=== PATIENT | male | born 1955 | race African-American/Black ===

== ENCOUNTER 2018-05-08 12:34 | Outpatient (CLI) | payer OTHER, MEDICAID, SELFPAY ==
--- NOTE | 2018-05-08 06:00 | DI.RAD_ITS ---
SYMPTOM/DIAGNOSIS: LUMBAR RADICULOPATHY C-ARM: Fluoroscopy Time: 57.9 seconds Images submitted from the pain clinic demonstrate needles positioned over the right and left lateral portions of L 5 in conjunction with a steroid injection carried out by Dr. Menendez. Please see the procedure report for further information.
[2018-05-08 12:38] VITALS: BP 119/84; PULSE 100; RESP 18; TEMP 37; O2SAT 99
[2018-05-08 13:19] VITALS: BP 149/77; PULSE 88; RESP 17; O2SAT 100
--- NOTE | 2018-05-08 13:19 | PDOC.PAIN ---
Pain Clinic Procedure Note Current Active Problems Problem Status Onset Lumbar radicular pain Chronic LUMBAR / SACRAL TRANSFORAMINAL INJECTION MARGARITO HESTER has been referred [facility] the [facility] for a transforaminal nerve root block and steroid injection. COMMENTS: Patient running at L5-S1 bilaterally and has had multiple bilateral transforaminal injection with good relief. Patient was interviewed and the medical record reviewed. There were no medical, pharmacologic, radiographic or other structural contraindications to attempting fluoroscopically guided transforaminal nerve root block and epidural steroid injection. Risks and expected side effects as well as potential benefit of the procedure were reviewed and voiced concerns addressed. The printed consent form was signed and witnessed. Standard time-out procedure was performed. Patient was placed in the prone position on the fluoroscopy table and automated blood pressure cuff and pulse oximeter applied. Fluoroscopy was utilized to identify the { bilateral} neural foramen between L5 and S1 . A skin tonya was made for the needle insertion site. A Chlorhexadine prep was carried out, and sterile drapes were applied. Local anesthesia was achieved in the skin and subcutaneous tissues. A 22 gauge curved tip spinal needle was then inserted, advanced with fluoroscopic guidance into the neural foramen, confirmed on the lateral view. After negative aspiration, 2 ml of Omnipaque 240 was injected confirming position in A/P and lateral views. This showed a good spread of dye transforaminally into the epidural space. There was no vascular update with contrast injection under continuous fluoroscopy and digital substraction. 60 mg of Depo-Medrol was injected, followed by 0.5 ml of 1% Xylocaine flush for the nerve root block, as well. There was no unusual discomfort expressed.The needle was withdrawn. The patient tolerated the procedure well. A Band-Aid was applied. Vital signs were stable throughout the procedure and were as recorded in nursing records. If given, dosages of intravenous drugs for anxiolysis and analgesia were documented in nursing records. Follow up plans and appointments were discussed. Post procedure instruction was given as documented in nursing records and patient was discharged in the care of an identified otr flatbed driver. COMMENTS: pain went from 8 to 09/15. f/u prn CC: [facility]
--- NOTE | 2018-05-08 13:22 | PDOC.PAIN_ITS ---
Pain Clinic Procedure Note Current Active Problems Problem Status Onset Lumbar radicular pain Chronic LUMBAR / SACRAL TRANSFORAMINAL INJECTION MARGARITO HESTER has been referred to the [facility] for a transforaminal nerve root block and steroid injection. COMMENTS: Patient running at L5-S1 bilaterally and has had multiple bilateral transforaminal injection with good relief. Patient was interviewed and the medical record reviewed. There were no medical , pharmacologic, radiographic or other structural contraindications to attempting fluoroscopically guided transforaminal nerve root block and epidural steroid injection. Risks and expected side effects as well as potential benefit of the procedure were reviewed and voiced concerns addressed. The printed consent form was signed and witnessed. Standard time-out procedure was performed. Patient was placed in the prone position on the fluoroscopy table and automated blood pressure cuff and pulse oximeter applied. Fluoroscopy was utilized to identify the { bilateral} neural foramen between L5 and S1 . A skin tonya was made for the needle insertion site. A Chlorhexadine prep was carried out, and sterile drapes were applied. Local anesthesia was achieved in the skin and subcutaneous tissues. A 22 gauge curved tip spinal needle was then inserted, advanced with fluoroscopic guidance into the neural foramen, confirmed on the lateral view. After negative aspiration, 2 ml of Omnipaque 240 was injected confirming position in A/P and lateral views. This showed a good spread of dye transforaminally into the epidural space. There was no vascular update with contrast injection under continuous fluoroscopy and digital substraction. 60 mg of Depo-Medrol was injected, followed by 0.5 ml of 1% Xylocaine flush for the nerve root block, as well. There was no unusual discomfort expressed.The needle was withdrawn. The patient tolerated the procedure well. A Band-Aid was applied. Vital signs were stable throughout the procedure and were as recorded in nursing records. If given, dosages of intravenous drugs for anxiolysis and analgesia were documented in nursing records. Follow up plans and appointments were discussed. Post procedure instruction was given as documented in nursing records and patient was discharged in the care of an identified bookmobile driver. COMMENTS: pain went from 8 to 09/15. f/u prn CC: [facility]
[2018-05-08] MEDS: Omnipaque 240 MG/ML 50 ML BTL IJ (13:28)
[2018-05-08] MEDS: Bupivacaine 0.5% Pres-Free 30 ML VIAL IJ (13:28)
[2018-05-08] MEDS: methylPREDNISolone ACETATE 40 MG/ML VIAL IJ (13:29)
== END 2018-05-08 12:54 ==
PROVIDERS: Visit Provider Anesthesiology Pain Medicine
DX: M54.16 Radiculopathy, lumbar region (principal); G89.29 Other chronic pain
CPT/HCPCS: 64483; 72100; J1030; Q9967

== ENCOUNTER 2018-06-12 14:49 | Emergency (ER) | payer OTHER, MEDICAID, SELFPAY ==
[2018-06-12 15:07] VITALS: BP 126/92; PULSE 78; RESP 14; TEMP 36.6; O2SAT 99
--- NOTE | 2018-06-12 15:54 | W.ED.GENAD ---
Discharge Plan Disposition Patient Disposition: HOME Condition: Stable Discharge Details Chief Complaint: Orthopedic Clinical Impression: Cervical pain (neck) Primary Care Provider: Tiana,Local ED Provider: Baldemar Ricketts Home Meds and New Rx's Prescriptions: New cyclobenzaprine 10 mg tablet 10 mg PO TID PRN (Reason: muscle spasm) Qty: 14 RF: 0 prednisone 50 mg tablet 50 mg PO DAILY Qty: 4 RF: 0 Continue aspirin [Adult Aspirin Regimen] 81 mg tablet,delayed release (DR/EC) 81 mg PO DAILY RF: 0 brimonidine 0.2 % drops 1 drp OP BID RF: 0 capsacin cream See Patient Comments Topical .COMPLEX PRNRF: 0 chlorthalidone 25 mg tablet 25 mg PO DAILY RF: 0 cholecalciferol (vitamin D3) 1,000 unit capsule 1,000 unit PO DAILY RF: 0 guaifenesin 100 mg/5 mL liquid 200 mg PO Q4H PRNRF: 0 Lactobacillus acidophilus 1 billion cell capsule 20 mg PO BID RF: 0 latanoprost (PF) 0.005 % drops 1 drp OP QPM PRNRF: 0 meloxicam 15 mg tablet 15 mg PO DAILY RF: 0 sildenafil 100 mg tablet 100 mg PO ONCE RF: 0 hydrocodone-acetaminophen 1 EACH tablet 1 tab PO QID PRN PRNRF: 0 atorvastatin [Lipitor] 20 MG tablet 20 mg PO DAILY RF: 0 quetiapine [Seroquel] 200 MG tablet 400 mg PO HS RF: 0 Ibuprofen [Motrin Ib] 200 MG tablet 600 mg PO Q6H 5 Days Qty: 60 RF: 0 gabapentin 600 MG tablet 900 mg PO TID Qty: 0 RF: 0 Discharge Instructions Instructions: Neck Pain (ED) Additional Instructions: Return immediately to the emergency department for any new or worsening symptoms such as upper extremity weakness, numbness or tingling that is persistent, any new or worrisome concerns. Due to the injection he received in the emergency department do not take any ibuprofen or meloxicam this evening. You may continue to take acetaminophen for your prescribe narcotic pain medication as needed for any further discomfort. You should follow-up with your primary care provider for reassessment if not improving over the next week. Referrals: [facility] [Outside] - 1 week (Follow-up with [place] [facility] for reassessment and further referral to neurology/neurosurgery for reevaluation of your neck pain. ) Discharge Data Discharge Date/Time-TO BE ENTERED AT DEPARTURE: 06/12/18 16:07 Medical Decision Making Patient presenting the emergency department for chief complaint of cervical neck pain. Patient states some radiation of discomfort down his left arm. Patient states chronic neck pain that is been going on for a year with MRI imaging showing some cervical bulging disc. Patient has appropriate upper extremity strength, no weakness, no muscle wasting, neurologically intact with no focal deficit, tenderness to palpation of soft tissue surrounding lower cervical spine and upper thoracic spine with some muscular tension felt around the medial aspect of the scapula. Spurling test is negative. patient has no fever or chills and denies any injury or trauma. I do not feel that patient needs any radiological imaging at this time and this appears to be chronic neck pain with acute flareup due to his reported bulging disc. Review of records shows similar presentation in the emergency department in January and patient being placed on prednisone and Flexeril which he states significantly helped in the past. [facility] and patient states he was never contacted by them. Patient placed upon care management follow-up list for facilitating [facility]. Patient states understanding to return for any new or worsening symptoms. Acutely in the emergency department patient received lidocaine patch, Flexeril, 15 mg IM ketorolac. After discussion of diagnosis and plan of care patient is no further needs, questions, or concerns and states clear understanding to return to the emergency department for any worsening symptoms. HPI General Mode of arrival: ambulatory. Date/Time Provider Initiated Documentation: 06/12/18 15:22. Limitations to Documentation: no limitations. Information obtained by: patient. History of Present Illness 62 year old M presents to the emergency department with the chief complaint of neck pain, described as severe, with intensity rated at 9. Quality is described as sharp, and is localized to the neck. Patient reports no radiation. Patient started experiencing this day(s) (1) and it has been constant. No relieving factors improve symptom(s), Movement worsens symptoms . Patient notes no other symptoms.. Related Data Home Medications Medication Instructions Recorded Confirmed Ibuprofen [Motrin Ib] 600 mg PO Q6H 5 Days #60 tab 01/13/18 05/08/18 atorvastatin [Lipitor] 20 mg PO DAILY 01/13/18 05/08/18 gabapentin 900 mg PO TID #0 01/13/18 05/08/18 hydrocodone-acetaminophen 1 tab PO QID PRN PRN 01/13/18 05/08/18 quetiapine [Seroquel] 400 mg PO HS 01/13/18 05/08/18 Lactobacillus acidophilus 1 20 mg PO BID cap 04/12/18 05/08/18 billion cell capsule aspirin 81 mg tablet,delayed 81 mg PO DAILY 04/12/18 05/08/18 release brimonidine 0.2 % eye drops 1 drp OP BID ml 04/12/18 05/08/18 capsacin See Label Instructions TOPICAL 04/12/18 05/08/18 .COMPLEX PRN chlorthalidone 25 mg tablet 25 mg PO DAILY 04/12/18 05/08/18 cholecalciferol (vitamin D3) 1,000 1,000 unit PO DAILY 04/12/18 05/08/18 unit capsule guaifenesin 100 mg/5 mL oral liquid 200 mg PO Q4H PRN 04/12/18 05/08/18 latanoprost (PF) 0.005 % eye drops 1 drp OP QPM PRN 04/12/18 05/08/18 meloxicam 15 mg tablet 15 mg PO DAILY 04/12/18 05/08/18 sildenafil 100 mg tablet 100 mg PO ONCE 04/12/18 05/08/18 cyclobenzaprine 10 mg PO TID PRN #14 tab 06/12/18 prednisone 50 mg PO DAILY #4 tab 06/12/18 Previous Rx's Medication Instructions Recorded Ibuprofen [Motrin Ib] 600 mg PO Q6H 5 Days #60 tab 01/13/18 gabapentin 900 mg PO TID #0 01/13/18 cyclobenzaprine 10 mg PO TID PRN #14 tab 06/12/18 prednisone 50 mg PO DAILY #4 tab 06/12/18 Allergies Allergy/AdvReac Type Severity Reaction Status Date / Time No Known Allergies Allergy Unverified 06/12/18 16:26 General Stated Complaint: Orthopedic JAMES: 4 Review of Systems Constitutional Denies chills, Denies fever(s) and Denies frequent falls ENT Reports neck pain Cardiovascular Denies syncope Musculoskeletal Reports as per HPI, Reports arthralgias, Denies limited range of motion, Reports neck pain, Denies numbness and Denies tingling Neurologic Denies syncope, Denies frequent falls, Denies numbness and Denies tingling PFSH Lumbar radicular pain (Chronic) Atherosclerosis of arteries (Acute) Chronic post-traumatic stress disorder (PTSD) (Acute) Hyperlipidemia (Acute) Intervertebral disc disorder with radiculopathy of lumbar region (Acute) Other problems related to housing and economic circumstances (Acute) Primary erectile dysfunction (Acute) GERD (gastroesophageal reflux disease) (Chronic) HTN (hypertension) (Chronic) H/O eye surgery (Acute) History of facial surgery (Acute) History of surgical removal of ganglion cyst (Acute) S/P tendon repair (Acute) Medical History Lumbar radicular pain (Chronic) Atherosclerosis of arteries (Acute) Chronic post-traumatic stress disorder (PTSD) (Acute) Hyperlipidemia (Acute) Intervertebral disc disorder with radiculopathy of lumbar region (Acute) Other problems related to housing and economic circumstances (Acute) Primary erectile dysfunction (Acute) GERD (gastroesophageal reflux disease) (Chronic) HTN (hypertension) (Chronic) Social History lives independently: Yes number of children: 2 current occupational status: employed current occupation: [employer] Smoking/Tobacco Use Status: Current every day alcohol intake: current alcohol intake frequency: a few times a week substance use type: marijuana Surgical History H/O eye surgery (Acute) History of facial surgery (Acute) History of surgical removal of ganglion cyst (Acute) S/P tendon repair (Acute) Social History lives independently: Yes number of children: 2 current occupational status: employed current occupation: [employer] Smoking/Tobacco Use Status: Current every day alcohol intake: current alcohol intake frequency: a few times a week substance use type: marijuana Exam Const General: cooperative, healthy appearing and no acute distress Orientation: alert, awake and oriented x3 Neck Neck: normal visual inspection, full ROM, no meningeal signs, trachea midline and supple Resp Effort & Inspection: normal respiratory effort and able to speak in complete sentences Cardio Rate: regular rate Rhythm: regular rhythm Back/Spine/Pelvis Cervical Spine: normal cervical lordosis, cervical ROM normal, cervical muscular tenderness (Mainly on left), pain with cervical ROM, No cervical spinal tenderness and other (Negative Spurling's test) Thoracic/Lumbar Spine: thoracic and lumbar spine normal to inspection Neuro General: moves all extremities, no focal motor deficits and other (Upper extremity reflexes intact and equal bilateral) Cognition: normal cognition Speech: speech normal Gait: normal gait Motor: muscle tone normal throughout and strength 5/5 throughout Course Vital Signs Temperature 36.6 C 06/12/18 15:07 Pulse 78 06/12/18 15:07 Respiratory Rate 14 06/12/18 15:07 Blood Pressure 126/92 H 06/12/18 15:07 Pulse Oximetry 99 06/12/18 15:07 Temperature 36.6 C 06/12/18 15:07 Temperature Source Temporal Artery Scan 06/12/18 15:07 Pulse 78 06/12/18 15:07 Respiratory Rate 14 06/12/18 15:07 Blood Pressure 126/92 H 06/12/18 15:07 Pulse Oximetry 99 06/12/18 15:07 Oxygen Delivery Method Room Air 06/12/18 15:07 Oxygen Flow Rate 0 06/12/18 15:07 Pain Level 10 06/12/18 15:07
[2018-06-12] MEDS: Cyclobenzaprine 10 MG TAB PO (16:02)
[2018-06-12] MEDS: Lidocaine 5% Patch 1 PATCH TP (16:03)
[2018-06-12] MEDS: Ketorolac 15 MG/ML VIAL IM (16:03)
[2018-06-12] MEDS: predniSONE 20 MG TAB 60 MG PO (16:03)
--- NOTE | 2018-06-13 07:52 | NUR.NOTE ---
Addendum entered by Kristy Michael 06/13/18 07:53: Fax Nicki Smiley [facility], [place] [phone] Original Note: Faxed to [facility] Sp[facility] with personnel at the [facility] and they will forward the information to his primary. Kristy Michael.
== END 2018-06-12 16:07 | disposition home or self-care (01) ==
PROVIDERS: Emergency Provider Nurse Practitioner Family
DX: M54.2 Cervicalgia (principal); G89.29 Other chronic pain; I10 Essential (primary) hypertension
CPT/HCPCS: 96372; 99284; J1885; J7512

== ENCOUNTER 2019-05-15 12:29 | Emergency (ER) | payer OTHER, SELFPAY ==
[2019-05-15 12:26] VITALS: BP 164/99; PULSE 88; RESP 18; TEMP 36.6; O2SAT 98
--- NOTE | 2019-05-15 12:51 | DI.CT_ITS ---
EXAM: CT FACIAL WO CLINICAL HISTORY: tender left bridge of nose, decrease maxill sensat TECHNIQUE: CT examination of the facial region was performed utilizing multi slice acquisition and m ultiplanar reconstruction. COMPARISON: No exams were available for comparison FINDINGS: The visualized brain is unremarkable. The visualized tracheolaryngeal structures appear intact. Mast oid air cells are clear and temporal bone structures appear intact. There is mild mucoperiosteal thi ckening right maxillary antrum consistent with chronic sinus disease. There is slight deformity of t he medial wall of the left orbit which has a smooth contour and which appears to be chronic. No unde rlying hematoma seen. Maxillofacial structures otherwise appear intact. No nasal fracture. IMPRESSION: Smooth deformity medial left orbital wall with no associated evidence of acute injury. No evidence o f acute fracture.
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
== END 2019-05-15 13:45 | disposition home or self-care (01) ==
PROVIDERS: Emergency Provider Student in an Organized Health Care Education/Training Program
DX: S00.83XA Contusion of other part of head, initial encounter (principal); R20.2 Paresthesia of skin; Y04.0XXA Assault by unarmed brawl or fight, initial encounter
CPT/HCPCS: 99285; 70486; 99284

== ENCOUNTER 2025-03-11 17:26 | Emergency (ER) | payer OTHER, SELFPAY ==
[2025-03-11 17:36] VITALS: BP 129/91; PULSE 102; RESP 16; TEMP 36.7; O2SAT 98
--- NOTE | 2025-03-11 18:03 | W.ED.GENAD ---
Discharge Plan Disposition Patient Disposition: Home Condition: Stable Discharge Details Clinical Impression: Skin infection Primary Care Provider: [facility] Provider: Bertram Roman Home Meds and New Rx's Prescriptions: New mupirocin [Centany] 2 % ointment 1 applic topical BID Qty: 15 0RF mupirocin [Centany] 2 % ointment 1 applic topical BID 7 Days Qty: 15 0RF Rx Instructions: Apply 1 twice a day for the next 7 days sulfamethoxazole-trimethoprim [Bactrim DS] 800-160 mg tablet 1 tab PO BID 10 Days Qty: 20 0RF Continued aspirin [Adult Aspirin Regimen] 81 mg tablet,delayed release (DR/EC) 81 mg PO DAILY brimonidine 0.2 % drops 1 drp OP BID chlorthalidone 25 mg tablet 25 mg PO DAILY cholecalciferol (vitamin D3) 1,000 unit capsule 1,000 unit PO DAILY Lactobacillus acidophilus 1 billion cell capsule 20 mg PO BID latanoprost (PF) 0.005 % drops 1 drp OP QPM PRN meloxicam 15 mg tablet 15 mg PO DAILY sildenafil 100 mg tablet 100 mg PO ONCE nicotine (polacrilex) 2 mg Gum 2 mg BUCCAL Q2H trazodone 100 mg Tablet 300 mg PO DAILY mupirocin 2 % Ointment 1 applic TOPICAL TID nicotine (polacrilex) 2 mg Lozenge 2 mg BUCCAL Q4H PRN hydrocodone-acetaminophen 1 EACH tablet 1 tab PO QID PRN PRN atorvastatin [Lipitor] 20 MG tablet 20 mg PO DAILY quetiapine [Seroquel] 200 MG tablet 400 mg PO HS gabapentin 600 MG tablet 900 mg PO TID Qty: 0 0RF Discharge Instructions Instructions: Sulfamethoxazole and Trimethoprim, Mupirocin, Cellulitis (Skin Infection), Adult ED Additional Instructions: You were seen in the emergency department for the infection behind both your ears. Your left ear is much worse I am placing you on an antibiotic called Bactrim sent to [facility] in [place], have also sent a prescription strength antibiotic ointment to this pharmacy, use this on the left ear. On the right ear I want you to purchase an [id number] athlete's foot cream and put this on your right ear wound to see which improves the wound the most, if the infection improves with the application of antifungal on the right ear start using the athlete's foot cream on both ears, [facility], return for any emergent concerns. Discharge Data Discharge Date/Time-TO BE ENTERED AT DEPARTURE: 03/11/25 19:50 HPI General Date/Time Provider Initiated Documentation: 03/11/25 17:43. HPI Narrative: 69 year-old male presents to ED today by POV/ambulating with a chief complaint of rash behind both ears, pain with onset over the past week. Quality described as painful rash in crease behind ears, no radiation to otic discharge, headache, fever, neck stiffness. Severity is described as mild to moderate. Palliating factors include tried putting neosporin on it. Provoking factors include nothing specific. Events leading up to the incident/Associated Symptoms: [facility] for [facility]. Patient not anticoagulated. Related Data Home Medications ?Medication ?Instructions ?Recorded ?Confirmed atorvastatin 20 mg tablet (Lipitor) 20 mg PO DAILY 01/13/18 03/11/25 gabapentin 600 mg tablet 900 mg (1.5 x 600 mg) PO TID ##0 01/13/18 03/11/25 hydrocodone 7.5 mg-acetaminophen 1 tab PO QID PRN PRN 01/13/18 03/11/25 325 mg tablet quetiapine 200 mg tablet (Seroquel) 400 mg PO HS 01/13/18 03/11/25 Lactobacillus acidophilus 1 20 mg PO BID 04/12/18 03/11/25 billion cell capsule aspirin 81 mg tablet,delayed 81 mg PO DAILY 04/12/18 03/11/25 release (Adult Aspirin Regimen) brimonidine 0.2 % eye drops 1 drp ophthalmic (eye) BID 04/12/18 03/11/25 chlorthalidone 25 mg tablet 25 mg PO DAILY 04/12/18 03/11/25 cholecalciferol (vitamin D3) 25 1,000 unit PO DAILY 04/12/18 03/11/25 mcg (1,000 unit) capsule latanoprost (PF) 0.005 % eye drops 1 drp ophthalmic (eye) QPM PRN 04/12/18 03/11/25 meloxicam 15 mg tablet 15 mg PO DAILY 04/12/18 03/11/25 sildenafil 100 mg tablet 100 mg PO ONCE 04/12/18 03/11/25 mupirocin 2 % topical ointment 1 applic topical TID 04/21/20 03/11/25 nicotine (polacrilex) 2 mg buccal 2 mg buccal Q4H PRN 04/21/20 03/11/25 lozenge nicotine (polacrilex) 2 mg gum 2 mg buccal Q2H 04/21/20 03/11/25 trazodone 100 mg tablet 300 mg PO DAILY 04/21/20 03/11/25 mupirocin 2 % topical ointment 1 applic topical BID #15 grams 03/11/25 (Centany) mupirocin 2 % topical ointment 1 applic topical BID Cellulitis 7 03/12/25 (Centany) days #15 grams sulfamethoxazole 800 1 tab PO BID 10 days #20 tabs 03/12/25 mg-trimethoprim 160 mg tablet (Bactrim DS) Previous Rx's ?Medication ?Instructions ?Recorded gabapentin 600 mg tablet 900 mg (1.5 x 600 mg) PO TID ##0 01/13/18 mupirocin 2 % topical ointment 1 applic topical BID #15 grams 03/11/25 (Centany) mupirocin 2 % topical ointment 1 applic topical BID Cellulitis 7 03/12/25 (Centany) days #15 grams sulfamethoxazole 800 1 tab PO BID 10 days #20 tabs 03/12/25 mg-trimethoprim 160 mg tablet (Bactrim DS) Allergies Allergy/AdvReac Type Severity Reaction Status Date / Time No Known Allergies Allergy Unverified 03/11/25 17:43 General Stated Complaint: RashLesion JAMES: 4 Review of Systems All systems reviewed & are unremarkable except as noted in HPI and below Exam Narrative Exam Narrative: GENERAL APPEARANCE: Well-nourished, non-toxic, awake and alert, atraumatic, no acute distress. SKIN: Warm, normal for ethnicity, dry, macular rash with some central lesion behind both ears worse behind the left ear, question cellulitis versus staph infection versus superficial fungal infection with foul-smelling biofilm, bilateral TMs within normal limits HEAD: Normocephalic, atraumatic, normal hair distribution for gender/age. EYES: Normal conjunctiva, no exudates on lids/lashes. ENT: Nares patent, no circumoral cyanosis, no facial swelling NECK: Supple, trachea midline, painless cervical ROM. LUNGS/CHEST: Non-labored respirations, normal A/P diameter, symmetrical expansion, no chest wall deformity HEART (CV/PV): No peripheral edema, no JVD. ABDOMEN: Soft, non-distended, no guarding. MSK: Normal ROM, no swelling/deformity to bilateral UEs or LEs, moving all extremities without weakness, no cyanosis, spine midline without tenderness, normal curvature. NEURO: Mental Status AAOx4 - alert to person, place, time, events No facial droop, no forehead involvement. Motor: No focal weakness - strength 5/5 in bilateral UEs and LEs, proximal and distal, symmetric. Sensory: sensation intact to light touch globally. Gait normal: patient ambulated without ataxia into ED room. PSYCH: euthymic, cooperative, pleasant, appropriate speech Course Vital Signs Vital signs: Vital Signs Temperature 36.7 C 03/11/25 17:36 Pulse 102 H 03/11/25 17:36 Respiratory Rate 16 03/11/25 17:36 Blood Pressure 129/91 H 03/11/25 17:36 Pulse Oximetry 98 03/11/25 17:36 Temperature 36.7 C 03/11/25 17:36 Temperature Source Oral 03/11/25 17:36 Pulse 102 H 03/11/25 17:36 Respiratory Rate 16 03/11/25 17:36 Blood Pressure 129/91 H 03/11/25 17:36 Blood Pressure Position Sitting 03/11/25 17:36 Pulse Oximetry 98 03/11/25 17:36 Oxygen Delivery Method Room Air 03/11/25 17:36 Oxygen Flow Rate 0 03/11/25 17:36 Pain Level 6 03/11/25 17:36 Medical Decision Making This dictation utilizes [id number] dictation software and may contain unedited grammatical errors. 69 year-old male presents to ED today by POV/ambulating with a chief complaint of rash behind both ears, pain with onset over the past week. Quality described as painful rash in crease behind ears, no radiation to otic discharge, headache, fever, neck stiffness. Severity is described as mild to moderate. Palliating factors include tried putting neosporin on it. Provoking factors include nothing specific. Events leading up to the incident/Associated Symptoms: [facility]. Patients' medical history: Hypertension hyperlipidemia. Family and social history: Noncontributory. Pertinent exam findings / vital signs include macular rash with some central lesion behind both ears worse behind the left ear, question cellulitis versus staph infection versus superficial fungal infection with foul-smelling biofilm, bilateral TMs within normal limits. Differential / pathologies of concern include cellulitis, fungal infection. Diagnostic studies of: - None. Interventions of: - Rx for Bactrim and mupirocin, advised mupirocin to the left ear where the rash is worse and a trial of relief of antifungal to the right ear. ED Course/Assessment/Plan: 61-year-old male presents with a simple superficial rash behind his ears with foul-smelling BioFoam consistent with either a mild cellulitis from staph infection versus a superficial fungal infection as it is an increased area, I am trialing him on p.o. Bactrim as well as mupirocin for his left ear and I advised trial of antifungal in his right ear, follow-up with his primary care provider, strict return criteria for severe spread of infection especially with fever. Findings not consistent with systemic infection, otic or inner ear involvement. Disposition of skin infection. Patient verbalized understanding of the plan and return to ED criteria and engaged in shared decision making. Medical Records Medical records reviewed: Yes I reviewed the patient's medical records. PFSH All Active Problems (Updated 03/11/25 @ 18:11 by ARJUN Gayle) Skin infection (Acute) Lumbar radicular pain (Chronic) Medical History Bipolar disorder Chronic post-traumatic stress disorder (PTSD) Intervertebral disc disorder with radiculopathy of lumbar region GERD (gastroesophageal reflux disease) Atherosclerosis of arteries HTN (hypertension) Hyperlipidemia Primary erectile dysfunction Other problems related to housing and economic circumstances Surgical History History of surgical removal of ganglion cyst H/O eye surgery History of facial surgery S/P tendon repair Social History Smoking/Tobacco Use Status: Current every day Smoking risk assessment performed?: Yes Alcohol Intake: current Alcohol Intake frequency: a few times a week Drug use: Daily Substance use type: marijuana, crack/cocaine, amphetamines, opiates and painkillers Details: Patient state he is clean Housing: apartment Number of Children: 2 current occupation: Cook What type of physical activity do you participate in: none Do you feel safe at home: No (due to police) Do you feel safe in your relationship?: Yes Additional Social history: feels safe in relationship.
[2025-03-11] MEDS: Sulfameth/Trimeth DS TAB 1 TAB PO (19:36)
--- NOTE | 2025-03-12 11:58 | NUR.NOTE ---
Nursing Note: Pt called and said that his prescriptions will not be covered at a local pharmacy and [facility] [place] I called the number on file multiple times and it hung up on me every time. I spoke with Kristy and we called the front office line who directed me to the PCP line. I was instructed by Yasmeen that I could not give a verbal for the medications prescribed and they needed to be faxed over. I spoke with my providers about the issues I was having and Madeleine Patricia took the discharge papers with the medications and said that she was going to send them over electronically for me.
--- NOTE | 2025-03-14 08:07 | NUR.NOTE ---
Accessed Pt chart to locate the name of the antibiotics for the specimen report. The report was then given to the Dr for review
== END 2025-03-11 19:50 | disposition home or self-care (01) ==
PROVIDERS: Emergency Provider Physician Assistant
DX: L08.9 Local infection of the skin and subcutaneous tissue, unspecified (principal)
CPT/HCPCS: 99283 ×2; 87077; 87070; 87205